=== PATIENT | female | born 1955 | race Caucasian/White ===

== ENCOUNTER → 2019-01-10 | Outpatient (CLI) | payer OTHER, BC | LOC: FIMAGING 13:11 | PROVIDERS: ATTEND Obstetrics & Gynecology | DX: Z12.31 Encounter for screening mammogram for malignant neoplasm of breast (principal); Z13.820 Encounter for screening for osteoporosis; M85.832 Other specified disorders of bone density and structure, left forearm; Z78.0 Asymptomatic menopausal state ==

== ENCOUNTER → 2019-02-27 | Outpatient (CLI) | payer BC, OTHER | LOC: FIMAGING 07:42 ==